=== PATIENT | female | born 1985 | race African-American/Black ===

== ENCOUNTER 2017-12-09 07:06 | Inpatient (IN) ==
[2017-12-09] MEDS ORDERED: ASPIRIN 325 MG TABLET PO STA (07:47)
[2017-12-09] MEDS ORDERED: SODIUM CHLORIDE 0.9% 1,000 ML IV STA (07:47)
[2017-12-09 07:58] LABS: Basophils % 0.1 % (0.0-0.8); Hematocrit 35.6 VOL% (35.7-47.0); Hemoglobin 12.3 GM/DL (12.0-16.0); Immature Granulocytes % 0.4 %; Immature Granulocytes Absolute 0.06 #; Lymphocytes # 1.3 10*3/uL (1.4-4.0); Lymphocytes % 8.6 % (21.3-54.2); Mean Corpuscular HGB Conc 34.6 GM/DL (32-36); Mean Corpuscular Hemoglobin 31 PG (27-34); Mean Corpuscular Volume 89.2 FL (87-102); Mean Platelet Volume 9.6 FL (9.6-12.0); Monocytes # 0.8 10*3/uL (0.11-0.8); Monocytes % 5.7 % (1.7-12.7); Neutrophils # 12.4 10*3/uL (1.4-7.4); Neutrophils % 85.2 % (38.7-73.9); Platelet Count 298 T/CUMM (130-400); Red Blood Count 3.99 MC/CUMM (3.8-5.5); Red Cell Distribution Width 12.5 % (9.3-17.3); White Blood Count 14.6 T/CUMM (4-12)
[2017-12-09] MEDS ORDERED: ASPIRIN 325 MG TABLET ONE (08:04)
[2017-12-09 08:19] LABS: Apearance,Urine Slightly Hazy (Clear); Bacteria,Urine Occasional /HPF (Few); Bilirubin,Urine Negative (Negative); Blood, Urine Small mg/dL (Negative); Glucose,Urine (UA) >=500 mg/dL (Negative); Ketones,Urine 20 mg/dL (Negative); Mucus,Urine Occasional /LPF (Occasional); Nitrite,Urine Positive (Negative); Protein,Urine Negative; RBC,Urine 1 /HPF (0-4); Squamous Epithelial Cell,Urine Occasional /HPF (0-10); Urine Color Straw (Yellow); Urine Specific Gravity 1.025 (1.001-1.035); Urine Urobilinogen < 2.0 EU/DL (0.2-1.0); WBC,Urine 50 /HPF (0-6)
[2017-12-09] MEDS ORDERED: INSULIN REGULAR 100 UNIT/ML SUBCUT STA (08:21)
[2017-12-09 08:27] LABS: Barbiturates Screen,Urine Negative (Negative); Benzodiazepines Screen,Urine Negative (Negative); Cannabinoid Screen,Urine Negative (Negative); Opiate Screen,Urine Negative (Negative); Phencyclidine Screen,Urine Negative (Negative)
[2017-12-09 08:33] LABS: Albumin 3.2 G/DL (3.4-5.0); Bilirubin,Total 0.5 MG/DL (0.2-1.0); Osmolality,Calculated 286.4 MOS/KG (273-304); Potassium 4.1 MMOL/L (3.5-5.1); Total Protein 7.1 G/DL (6.4-8.3)
[2017-12-09] MEDS ORDERED: INSULIN REGULAR 100 UNIT/ML ONE (08:33)
[2017-12-09] MEDS ORDERED: INSULIN REGULAR 100 UNIT/ML IV STA (09:42)
[2017-12-09] MEDS ORDERED: SODIUM CHLORIDE 0.9% 3,000 ML IV ONE (09:43)
[2017-12-09] MEDS ORDERED: GLUCAGON 1 MG VIAL IM PRN (09:44)
[2017-12-09] MEDS ORDERED: DEXTROSE 50% 25 GM/50 ML VIAL IV PRN (09:44)
[2017-12-09] MEDS ORDERED: NICOTINE 21 MG/24 HR PATCH TRANSDERM PRN (09:45)
[2017-12-09] MEDS ORDERED: ACETAMINOPHEN 325 MG TABLET PO PRN (09:45)
[2017-12-09] MEDS ORDERED: MORPHINE 4 MG/1 ML VIAL IV PRN (09:45)
[2017-12-09] MEDS ORDERED: ONDANSETRON 4 MG/2 ML VIAL IV PRN (09:45)
[2017-12-09] MEDS ORDERED: LEVOFLOXACIN INJ 500 MG in PREMIX 1 EACH IV SCH (10:00)
[2017-12-09] MEDS ORDERED: LEVOFLOXACIN INJ 100 ML IV ONE (10:27)
[2017-12-09 10:33] LABS: Risk Ratio 3.48; VLDL CHOLESTEROL 16.2 MG/DL
[2017-12-09 10:42] LABS: Allen Test Positive; Pt O2 Delivery Device Room Air
[2017-12-09 10:44] LABS: ABG Base Excess -3.6 MMOL/L (-2.5-2.5); ABG HCO3 21.4 MMOL/L (20-26); ABG Oxygen Saturation 98.6 % (95-100); ABG PH 7.409 (7.35-7.45)
[2017-12-09 10:52] LABS: Lactic Acid 4.4 MMOL/L (0.4-2.0)
[2017-12-09] MEDS: INSULIN REGULAR 100 UNIT/ML SUBCUT SCH ×3 (12:51→22:31)
[2017-12-09] MEDS: ENOXAPARIN 40 MG/0.4 ML SYRINGE SUBCUT SCH (13:21)
[2017-12-09] MEDS: SODIUM CHLORIDE 0.9% 1,000 ML IV SCH (13:22)
[2017-12-09] MEDS: cefTRIAXone 1,000 MG in SYRINGE 1 EACH IV SCH (14:29)
[2017-12-09 14:54] LABS: Lactic Acid 3.7 MMOL/L (0.4-2.0)
[2017-12-09] MEDS ORDERED: INSULIN NPH/REGULAR 70/30 100 UNIT/ML SUBCUT SCH (19:00)
[2017-12-10] MEDS: SODIUM CHLORIDE 0.9% 1,000 ML IV SCH ×2 (00:16→08:26)
[2017-12-10 05:05] LABS: Basophils % 0.2 % (0.0-0.8); Eosinophils # 0.1 10*3/uL (0.0-0.87); Eosinophils % 0.6 % (0.00-10.9); Hematocrit 31.4 VOL% (35.7-47.0); Hemoglobin 10.6 GM/DL (12.0-16.0); Immature Granulocytes % 0.3 %; Immature Granulocytes Absolute 0.04 #; Lymphocytes # 2.5 10*3/uL (1.4-4.0); Lymphocytes % 20.1 % (21.3-54.2); Mean Corpuscular HGB Conc 33.8 GM/DL (32-36); Mean Corpuscular Hemoglobin 30 PG (27-34); Mean Platelet Volume 9.8 FL (9.6-12.0); Monocytes # 0.8 10*3/uL (0.11-0.8); Monocytes % 6.1 % (1.7-12.7); Neutrophils # 9.2 10*3/uL (1.4-7.4); Neutrophils % 72.7 % (38.7-73.9); Platelet Count 260 T/CUMM (130-400); Red Blood Count 3.49 MC/CUMM (3.8-5.5); Red Cell Distribution Width 12.7 % (9.3-17.3); White Blood Count 12.6 T/CUMM (4-12)
[2017-12-10 05:35] LABS: Atypical Lymphocytes Few; Eosinophils 2 % (0-10); Lymphocytes 15 % (20-55); Segmented Neutrophils 79 % (50-85); Total Cells Counted 100
[2017-12-10 05:36] LABS: Hypochromasia 1+; Microcytosis Slight; Ovalocytes Slight; Platelet Estimate Normal
[2017-12-10 05:44] LABS: Albumin 2.3 G/DL (3.4-5.0); Bilirubin,Total 0.6 MG/DL (0.2-1.0); Osmolality,Calculated 276.3 MOS/KG (273-304); Potassium 3.7 MMOL/L (3.5-5.1); Total Protein 5.5 G/DL (6.4-8.3)
[2017-12-10] MEDS: INSULIN REGULAR 100 UNIT/ML SUBCUT SCH ×4 (07:48→20:35)
[2017-12-10] MEDS ORDERED: DEXTROSE 50% 25 GM/50 ML VIAL IV PRN (07:55)
[2017-12-10] MEDS ORDERED: GLUCAGON 1 MG VIAL IM PRN (07:55)
[2017-12-10] MEDS: PANTOPRAZOLE 40 MG TABLET PO SCH (08:27)
[2017-12-10] MEDS ORDERED: LORazepam 2 MG/1 ML VIAL ONE (08:29)
[2017-12-10] MEDS ORDERED: INSULIN NPH/REGULAR 70/30 100 UNIT/ML SUBCUT SCH (09:00)
[2017-12-10] MEDS: ENOXAPARIN 40 MG/0.4 ML SYRINGE SUBCUT SCH (09:00)
[2017-12-10] MEDS: cefTRIAXone 1,000 MG in SYRINGE 1 EACH IV SCH (15:45)
[2017-12-10] MEDS: INSULIN NPH/REGULAR 70/30 100 UNIT/ML SUBCUT SCH (16:15)
[2017-12-11] MEDS: INSULIN NPH/REGULAR 70/30 100 UNIT/ML SUBCUT SCH ×2 (08:35→17:35)
[2017-12-11] MEDS: INSULIN REGULAR 100 UNIT/ML SUBCUT SCH ×4 (08:35→21:55)
[2017-12-11] MEDS: PANTOPRAZOLE 40 MG TABLET PO SCH (08:36)
[2017-12-11] MEDS: ENOXAPARIN 40 MG/0.4 ML SYRINGE SUBCUT SCH (09:12)
[2017-12-11] MEDS: cefTRIAXone 1,000 MG in SYRINGE 1 EACH IV SCH (14:17)
[2017-12-11] MEDS: cephALEXin 500 MG CAPSULE PO SCH (21:55)
[2017-12-12 05:35] LABS: % Iron Saturation 7.8 % (18-50); Calcium 8.1 MG/DL (8.5-10.1); Osmolality,Calculated 276.3 MOS/KG (273-304); Potassium 4.3 MMOL/L (3.5-5.1)
[2017-12-12] MEDS: cephALEXin 500 MG CAPSULE PO SCH ×2 (06:31→14:48)
[2017-12-12] MEDS: PANTOPRAZOLE 40 MG TABLET PO SCH (08:26)
[2017-12-12] MEDS: ENOXAPARIN 40 MG/0.4 ML SYRINGE SUBCUT SCH ×2 (08:27→09:48)
[2017-12-12] MEDS: INSULIN REGULAR 100 UNIT/ML SUBCUT SCH ×2 (08:30→12:19)
[2017-12-12] MEDS: INSULIN NPH/REGULAR 70/30 100 UNIT/ML SUBCUT SCH (08:30)
[2017-12-12 11:42] VITALS: BP 115/70
[2017-12-12] MEDS: cefTRIAXone 1,000 MG in SYRINGE 1 EACH IV SCH (14:48)
[2017-12-12] MEDS ORDERED: FERROUS SULFATE 325 MG TABLET PO SCH (21:00)
== END 2017-12-12 15:45 | disposition home or self-care (01) | DRG 872 ==
LOC: N.ED 07:06 → SUATTDRO 09:25 → N.EDINP 10:11 → N.5E 12:21
PROVIDERS: ADMIT Internal Medicine; ATTEND Internal Medicine Cardiovascular Disease

== ENCOUNTER 2018-08-29 13:19 | Inpatient (IN) ==
[2018-08-29 14:04] LABS: Apearance,Urine Slightly Hazy (Clear); Bacteria,Urine Occasional /HPF (Few); Bilirubin,Urine Negative (Negative); Blood, Urine Negative (Negative); Glucose,Urine (UA) >=500 mg/dL (Negative); Hyaline Casts,Urine 20 /LPF (0-3); Ketones,Urine 80 mg/dL (Negative); Mucus,Urine Occasional /LPF (Occasional); Nitrite,Urine Negative (Negative); Protein,Urine Negative; RBC,Urine 6 /HPF (0-4); Squamous Epithelial Cell,Urine Few /HPF (0-10); Urine Color Yellow (Yellow); Urine Specific Gravity 1.022 (1.001-1.035); WBC,Urine 23 /HPF (0-6)
[2018-08-29] MEDS ORDERED: ONDANSETRON 4 MG/2 ML VIAL IV STA (14:39)
[2018-08-29] MEDS ORDERED: PANTOPRAZOLE 40 MG VIAL IV STA (14:39)
[2018-08-29] MEDS ORDERED: HYDROmorphone 2 MG/1 ML VIAL IV STA (14:39)
[2018-08-29] MEDS ORDERED: SODIUM CHLORIDE 0.9% 1,000 ML IV STA (14:39)
[2018-08-29] MEDS ORDERED: cefTRIAXone 1,000 MG in SODIUM CHLORIDE 0.9% 100 ML IV STA (14:46)
[2018-08-29 15:24] LABS: Basophils % 0.3 % (0.0-0.8); Hematocrit 35.5 VOL% (35.7-47.0); Hemoglobin 11.6 GM/DL (12.0-16.0); Immature Granulocytes % 0.3 %; Immature Granulocytes Absolute 0.03 #; Lymphocytes # 2.6 10*3/uL (1.4-4.0); Lymphocytes % 22.9 % (21.3-54.2); Mean Corpuscular HGB Conc 32.7 GM/DL (32-36); Mean Corpuscular Hemoglobin 30 PG (27-34); Mean Corpuscular Volume 90.6 FL (87-102); Mean Platelet Volume 9.2 FL (9.6-12.0); Monocytes # 0.7 10*3/uL (0.11-0.8); Monocytes % 5.7 % (1.7-12.7); Neutrophils % 70.8 % (38.7-73.9); Platelet Count 388 T/CUMM (130-400); Red Blood Count 3.92 MC/CUMM (3.8-5.5); Red Cell Distribution Width 13.4 % (9.3-17.3); White Blood Count 11.4 T/CUMM (4-12)
[2018-08-29 15:44] LABS: Lactic Acid 1.8 MMOL/L (0.4-2.0)
[2018-08-29 15:46] LABS: Bilirubin,Total 0.8 MG/DL (0.2-1.0); Calcium 9.5 MG/DL (8.5-10.1); Osmolality,Calculated 288.8 MOS/KG (273-304); Potassium 4.8 MMOL/L (3.5-5.1); Total Protein 8.1 G/DL (6.4-8.3)
[2018-08-29] MEDS ORDERED: INSULIN REGULAR DRIP 100 ML IV PRN (15:56)
[2018-08-29 16:22] LABS: ABG Oxygen Saturation 96.8 % (95-100); ABG PCO2 33.5 MM HG (35-48); ABG PO2 95.8 MM HG (80-95); ABG TCO2 15.7 MMOL/L (23-27); Pt O2 Delivery Device Room Air
[2018-08-29] MEDS ORDERED: INSULIN REGULAR 100 UNIT/ML IV ONE ×3 (16:31→23:27)
[2018-08-29] MEDS ORDERED: SODIUM BICARB INJ 100 MEQ in STERILE WATER INJ 400 ML IV PRN (16:31)
[2018-08-29] MEDS ORDERED: MAGNESIUM SULF RIDER 4 GM in PREMIX 1 EACH IV PRN (16:31)
[2018-08-29] MEDS ORDERED: SODIUM PHOSPHATE IV PRN (16:31)
[2018-08-29] MEDS ORDERED: DEXTROSE 50% 25 GM/50 ML VIAL IV PRN ×2 (16:31)
[2018-08-29] MEDS ORDERED: SODIUM CHLORIDE 0.9% 1,000 ML IV ONE (16:31)
[2018-08-29] MEDS ORDERED: SODIUM CHLORIDE 0.9% IV PRN (16:31)
[2018-08-29] MEDS ORDERED: MAGNESIUM SULF RIDER 2 GM in PREMIX 1 EACH IV PRN (16:31)
[2018-08-29] MEDS ORDERED: PROMETHAZINE 25 MG/1 ML VIAL IM PRN (16:42)
[2018-08-29] MEDS ORDERED: MORPHINE 4 MG/1 ML VIAL IV PRN (16:42)
[2018-08-29] MEDS ORDERED: diphenhydrAMINE CAP 25 MG CAPSULE PO PRN (16:42)
[2018-08-29] MEDS ORDERED: ONDANSETRON 4 MG/2 ML VIAL IV PRN (16:42)
[2018-08-29] MEDS ORDERED: ACETAMINOPHEN 325 MG TABLET PO PRN (16:42)
[2018-08-29] MEDS ORDERED: INSULIN REGULAR DRIP 100 ML IV SCH (17:00)
[2018-08-29] MEDS: cefTRIAXone 2,000 MG in SYRINGE 1 EACH IV SCH (17:58)
[2018-08-29] MEDS: SODIUM CHLORIDE 0.9% 1,000 ML IV SCH ×2 (17:59→20:13)
[2018-08-29 18:18] LABS: ABG Base Excess -11.2 MMOL/L (-2.5-2.5); ABG HCO3 15.5 MMOL/L (20-26); ABG Oxygen Saturation 98.5 % (95-100); ABG PCO2 27.8 MM HG (35-48); ABG PH 7.309 (7.35-7.45); ABG TCO2 12.9 MMOL/L (23-27)
[2018-08-29] MEDS: HEPARIN 5,000 UNIT/1 ML VIAL SUBCUT SCH (18:39)
[2018-08-29 20:21] LABS: ABG Base Excess -7.1 MMOL/L (-2.5-2.5); ABG HCO3 18.6 MMOL/L (20-26); ABG Oxygen Saturation 98.4 % (95-100); ABG PCO2 30.6 MM HG (35-48); ABG PH 7.362 (7.35-7.45); Allen Test Positive; Pt O2 Delivery Device Room Air
[2018-08-29 20:33] LABS: Calcium 8.2 MG/DL (8.5-10.1); Osmolality,Calculated 283.5 MOS/KG (273-304); Potassium 4.1 MMOL/L (3.5-5.1)
[2018-08-29] MEDS: DOCUSATE SODIUM 100 MG CAPSULE PO SCH (21:27)
[2018-08-29] MEDS ORDERED: SODIUM CHLORIDE 0.9% 1,000 ML IV SCH (21:31)
[2018-08-29 22:32] LABS: ABG Base Excess -10.2 MMOL/L (-2.5-2.5); ABG HCO3 16.3 MMOL/L (20-26); ABG Oxygen Saturation 99.4 % (95-100); ABG PCO2 26.6 MM HG (35-48); ABG PH 7.341 (7.35-7.45); ABG TCO2 13.3 MMOL/L (23-27); Allen Test Positive; Pt O2 Delivery Device Room Air
[2018-08-29 23:04] LABS: Apearance,Urine Slightly Hazy (Clear); Bacteria,Urine Occasional /HPF (Few); Bilirubin,Urine Negative (Negative); Blood, Urine Negative (Negative); Glucose,Urine (UA) >=500 mg/dL (Negative); Ketones,Urine 20 mg/dL (Negative); Mucus,Urine Occasional /LPF (Occasional); Nitrite,Urine Negative (Negative); Protein,Urine Negative; RBC,Urine 3 /HPF (0-4); Squamous Epithelial Cell,Urine Occasional /HPF (0-10); Urine Color Yellow (Yellow); Urine Specific Gravity 1.026 (1.001-1.035); Urine Urobilinogen < 2.0 EU/DL (0.2-1.0); WBC,Urine 13 /HPF (0-6)
[2018-08-30] MEDS: DEXTROSE 5% NACL 0.9% 1,000 ML IV SCH ×2 (00:40→04:41)
[2018-08-30] MEDS: HEPARIN 5,000 UNIT/1 ML VIAL SUBCUT SCH ×3 (00:52→17:36)
[2018-08-30 01:33] LABS: Calcium 7.4 MG/DL (8.5-10.1); Osmolality,Calculated 280.1 MOS/KG (273-304); Potassium 3.4 MMOL/L (3.5-5.1)
[2018-08-30] MEDS: POTASSIUM CHLORIDE RIDER 10 MEQ in PREMIX 1 EACH IV PRN ×3 (02:29→04:41)
[2018-08-30 04:33] LABS: Basophils % 0.1 % (0.0-0.8); Eosinophils % 0.4 % (0.00-10.9); Hematocrit 26.2 VOL% (35.7-47.0); Hemoglobin 8.5 GM/DL (12.0-16.0); Immature Granulocytes % 0.3 %; Immature Granulocytes Absolute 0.03 #; Lymphocytes # 4.2 10*3/uL (1.4-4.0); Lymphocytes % 44.3 % (21.3-54.2); Mean Corpuscular HGB Conc 32.4 GM/DL (32-36); Mean Corpuscular Hemoglobin 30 PG (27-34); Mean Platelet Volume 10.3 FL (9.6-12.0); Monocytes # 0.5 10*3/uL (0.11-0.8); Monocytes % 5.6 % (1.7-12.7); Neutrophils # 4.6 10*3/uL (1.4-7.4); Neutrophils % 49.3 % (38.7-73.9); Platelet Count 222 T/CUMM (130-400); Red Blood Count 2.88 MC/CUMM (3.8-5.5); Red Cell Distribution Width 13.2 % (9.3-17.3); White Blood Count 9.4 T/CUMM (4-12)
[2018-08-30 05:00] LABS: Calcium 7.4 MG/DL (8.5-10.1); Osmolality,Calculated 277.4 MOS/KG (273-304); Potassium 3.7 MMOL/L (3.5-5.1)
[2018-08-30] MEDS: SODIUM CHLORIDE 0.45% 1,000 ML IV SCH ×2 (08:30→17:03)
[2018-08-30 08:55] LABS: Calcium 7.4 MG/DL (8.5-10.1); Osmolality,Calculated 279.8 MOS/KG (273-304); Potassium 3.9 MMOL/L (3.5-5.1)
[2018-08-30] MEDS ORDERED: GLUCAGON 1 MG VIAL IM PRN (09:02)
[2018-08-30] MEDS: DOCUSATE SODIUM 100 MG CAPSULE PO SCH ×2 (09:49→20:46)
[2018-08-30] MEDS: INSULIN GLARGINE 100 UNIT/ML SUBCUT SCH (09:50)
[2018-08-30] MEDS: NICOTINE 21 MG/24 HR PATCH TRANSDERM SCH (09:50)
[2018-08-30] MEDS: INSULIN REGULAR 100 UNIT/ML SUBCUT SCH ×4 (12:40→23:35)
[2018-08-30] MEDS: cefTRIAXone 2,000 MG in SYRINGE 1 EACH IV SCH (17:37)
[2018-08-30] MEDS ORDERED: INSULIN GLARGINE 100 UNIT/ML SUBCUT SCH (21:00)
[2018-08-31] MEDS: HEPARIN 5,000 UNIT/1 ML VIAL SUBCUT SCH ×2 (01:12→08:38)
[2018-08-31] MEDS: INSULIN REGULAR 100 UNIT/ML SUBCUT SCH ×3 (03:25→13:26)
[2018-08-31 06:00] LABS: Basophils % 0.2 % (0.0-0.8); Eosinophils # 0.1 10*3/uL (0.0-0.87); Eosinophils % 1.1 % (0.00-10.9); Hematocrit 26.2 VOL% (35.7-47.0); Hemoglobin 8.7 GM/DL (12.0-16.0); Lymphocytes # 2.9 10*3/uL (1.4-4.0); Lymphocytes % 66.4 % (21.3-54.2); Mean Corpuscular HGB Conc 33.2 GM/DL (32-36); Mean Corpuscular Hemoglobin 30 PG (27-34); Mean Corpuscular Volume 90.7 FL (87-102); Mean Platelet Volume 9.1 FL (9.6-12.0); Monocytes # 0.3 10*3/uL (0.11-0.8); Monocytes % 6.8 % (1.7-12.7); Neutrophils # 1.1 10*3/uL (1.4-7.4); Neutrophils % 25.5 % (38.7-73.9); Platelet Count 278 T/CUMM (130-400); Red Blood Count 2.89 MC/CUMM (3.8-5.5); Red Cell Distribution Width 13.4 % (9.3-17.3); White Blood Count 4.4 T/CUMM (4-12)
[2018-08-31 06:01] LABS: Basophils % 0.4 % (0.0-0.8); Eosinophils % 0.9 % (0.00-10.9); Hematocrit 26.2 VOL% (35.7-47.0); Hemoglobin 8.6 GM/DL (12.0-16.0); Immature Granulocytes % 0.2 %; Immature Granulocytes Absolute 0.01 #; Lymphocytes % 65.7 % (21.3-54.2); Mean Corpuscular HGB Conc 32.8 GM/DL (32-36); Mean Corpuscular Hemoglobin 30 PG (27-34); Mean Platelet Volume 9.1 FL (9.6-12.0); Monocytes # 0.3 10*3/uL (0.11-0.8); Monocytes % 6.7 % (1.7-12.7); Neutrophils # 1.2 10*3/uL (1.4-7.4); Neutrophils % 26.1 % (38.7-73.9); Platelet Count 278 T/CUMM (130-400); Red Blood Count 2.91 MC/CUMM (3.8-5.5); Red Cell Distribution Width 13.5 % (9.3-17.3); White Blood Count 4.5 T/CUMM (4-12)
[2018-08-31] MEDS: SODIUM CHLORIDE 0.45% 1,000 ML IV SCH (06:26)
[2018-08-31 06:27] LABS: Eosinophils 2 % (0-10); Lymphocytes 70 % (20-55); Segmented Neutrophils 27 % (50-85); Total Cells Counted 100
[2018-08-31 06:28] LABS: Hypochromasia Slight; Microcytosis 1+; Platelet Estimate Adequate; Polychromasia Few
[2018-08-31 06:30] LABS: Calcium 7.8 MG/DL (8.5-10.1); Osmolality,Calculated 279.1 MOS/KG (273-304); Potassium 3.7 MMOL/L (3.5-5.1)
[2018-08-31 06:34] LABS: Eosinophils 1 % (0-10); Lymphocytes 72 % (20-55); Platelet Estimate Normal; Schistocytes Few; Segmented Neutrophils 25 % (50-85); Total Cells Counted 100
[2018-08-31] MEDS: POTASSIUM CHLORIDE RIDER 10 MEQ in PREMIX 1 EACH IV PRN (06:47)
[2018-08-31 06:50] LABS: Folate 2.3 NG/ML (5.4-24.0); Vitamin B12 332 PG/ML (211-911)
[2018-08-31 08:20] LABS: Sedimentation Rate-Westergren 68 MM/HR (0-20)
[2018-08-31] MEDS: DOCUSATE SODIUM 100 MG CAPSULE PO SCH (08:37)
[2018-08-31] MEDS: INSULIN GLARGINE 100 UNIT/ML SUBCUT SCH (08:38)
[2018-08-31] MEDS: NICOTINE 21 MG/24 HR PATCH TRANSDERM SCH (08:38)
[2018-08-31] MEDS ORDERED: POTASSIUM CHLORIDE 20 MEQ TABLET PO PRN (08:43)
[2018-08-31 13:25] VITALS: BP 134/84
[2018-08-31 14:10] LABS: Hemoglobin A1 (Alkaline) 97.3 % (96.5-98.5); Hemoglobin A2 (Alkaline) 2.7 % (1.5-3.5)
== END 2018-08-31 12:42 | disposition home or self-care (01) | DRG 638 ==
LOC: N.ED 13:19 → N.EDINP 16:31 → SUATTDRO 16:31 → N.CC 16:53
PROVIDERS: ADMIT Phlebology; ATTEND Internal Medicine Geriatric Medicine

== ENCOUNTER 2018-10-23 02:28 | Inpatient (IN) ==
[2018-10-23] MEDS ORDERED: SODIUM CHLORIDE 0.9% 2,000 ML IV STA (03:27)
[2018-10-23] MEDS ORDERED: INSULIN REGULAR 100 UNIT/ML IV STA (03:28)
[2018-10-23 03:37] LABS: Basophils % 0.1 % (0.0-0.8); Eosinophils % 0.2 % (0.00-10.9); Hematocrit 35.1 VOL% (35.7-47.0); Hemoglobin 11.2 GM/DL (12.0-16.0); Immature Granulocytes % 0.5 %; Immature Granulocytes Absolute 0.04 #; Lymphocytes # 1.6 10*3/uL (1.4-4.0); Lymphocytes % 17.5 % (21.3-54.2); Mean Corpuscular HGB Conc 31.9 GM/DL (32-36); Mean Corpuscular Hemoglobin 29 PG (27-34); Mean Corpuscular Volume 89.5 FL (87-102); Monocytes # 0.4 10*3/uL (0.11-0.8); Monocytes % 4.9 % (1.7-12.7); Neutrophils # 6.8 10*3/uL (1.4-7.4); Neutrophils % 76.8 % (38.7-73.9); Platelet Count 375 T/CUMM (130-400); Red Blood Count 3.92 MC/CUMM (3.8-5.5); Red Cell Distribution Width 13.7 % (9.3-17.3); White Blood Count 8.9 T/CUMM (4-12)
[2018-10-23 03:49] LABS: Alanine Aminotransferase < 9 U/L (13-56); Albumin 3.6 G/DL (3.4-5.0); Alkaline Phosphatase 104 U/L (45-117); Aspartate Amino Transferase 6 U/L (0-37); Blood Urea Nitrogen 15 MG/DL (7-18); Calcium 8.9 MG/DL (8.5-10.1); Osmolality,Calculated 295.8 MOS/KG (273-304); Potassium 4.7 MMOL/L (3.5-5.1); Sodium 130 MMOL/L (136-145); Total Protein 7.2 G/DL (6.4-8.3)
[2018-10-23 03:52] LABS: Glucose 728 MG/DL (74-106)
[2018-10-23] MEDS ORDERED: INSULIN REGULAR DRIP 100 ML IV PRN (04:03)
[2018-10-23 04:22] LABS: VBG Base Excess -12.2 MEQ/L (0-4); VBG Oxygen Saturation 97.8 %; VBG PCO2 29.4 MMHG (41-51); VBG PH 7.272
[2018-10-23] MEDS ORDERED: PROMETHAZINE 25 MG/1 ML VIAL IM STA (04:56)
[2018-10-23] MEDS ORDERED: PROMETHAZINE 25 MG/1 ML VIAL ONE (04:57)
[2018-10-23] MEDS ORDERED: INSULIN REGULAR DRIP 100 ML IV STA (05:22)
[2018-10-23] MEDS ORDERED: INSULIN REGULAR DRIP 100 ML IV SCH ×2 (05:30→06:30)
[2018-10-23 05:40] LABS: Apearance,Urine CLEAR (Clear); Bacteria,Urine Occasional /HPF (Few); Bilirubin,Urine Negative (Negative); Blood, Urine Moderate mg/dL (Negative); Glucose,Urine (UA) >=500 mg/dL (Negative); Ketones,Urine 80 mg/dL (Negative); Nitrite,Urine Negative (Negative); Protein,Urine Negative; RBC,Urine 2 /HPF (0-4); Squamous Epithelial Cell,Urine Occasional /HPF (0-10); Urine Color Straw (Yellow); Urine Specific Gravity 1.027 (1.001-1.035); Urine Urobilinogen < 2.0 EU/DL (0.2-1.0); WBC,Urine 1 /HPF (0-6)
[2018-10-23 05:56] LABS: Barbiturates Screen,Urine Negative (Negative); Benzodiazepines Screen,Urine Negative (Negative); Cannabinoid Screen,Urine Negative (Negative); Opiate Screen,Urine Negative (Negative); Phencyclidine Screen,Urine Negative (Negative)
[2018-10-23] MEDS ORDERED: POTASSIUM CHLORIDE RIDER 10 MEQ in PREMIX 1 EACH IV PRN (06:15)
[2018-10-23] MEDS ORDERED: SODIUM PHOSPHATE IV PRN (06:15)
[2018-10-23] MEDS ORDERED: SODIUM BICARB INJ 100 MEQ in STERILE WATER INJ 400 ML IV PRN (06:15)
[2018-10-23] MEDS ORDERED: MAGNESIUM SULF RIDER 2 GM in PREMIX 1 EACH IV PRN (06:15)
[2018-10-23] MEDS ORDERED: MAGNESIUM SULF RIDER 4 GM in PREMIX 1 EACH IV PRN (06:15)
[2018-10-23] MEDS ORDERED: DEXTROSE 50% 25 GM/50 ML VIAL IV PRN (06:15)
[2018-10-23] MEDS ORDERED: SODIUM CHLORIDE 0.9% 1,000 ML IV ONE (06:15)
[2018-10-23] MEDS ORDERED: SODIUM CHLORIDE 0.9% IV PRN (06:15)
[2018-10-23] MEDS ORDERED: DEXTROSE 50% 25 GM/50 ML SYRINGE IV PRN ×3 (06:15→16:10)
[2018-10-23 06:20] LABS: Basophils % 0.2 % (0.0-0.8); Hemoglobin 10.8 GM/DL (12.0-16.0); Immature Granulocytes % 0.5 %; Immature Granulocytes Absolute 0.06 #; Lymphocytes # 0.6 10*3/uL (1.4-4.0); Lymphocytes % 4.9 % (21.3-54.2); Mean Corpuscular HGB Conc 31.8 GM/DL (32-36); Mean Corpuscular Hemoglobin 29 PG (27-34); Mean Corpuscular Volume 90.9 FL (87-102); Mean Platelet Volume 9.6 FL (9.6-12.0); Monocytes # 0.6 10*3/uL (0.11-0.8); Monocytes % 4.4 % (1.7-12.7); Neutrophils # 11.5 10*3/uL (1.4-7.4); Platelet Count 349 T/CUMM (130-400); Red Blood Count 3.74 MC/CUMM (3.8-5.5); Red Cell Distribution Width 13.7 % (9.3-17.3); White Blood Count 12.8 T/CUMM (4-12)
[2018-10-23] MEDS ORDERED: ONDANSETRON 4 MG/2 ML VIAL IV PRN (06:20)
[2018-10-23] MEDS ORDERED: DOCUSATE SODIUM 100 MG CAPSULE PO PRN (06:20)
[2018-10-23] MEDS ORDERED: ZALEPLON 5 MG CAPSULE PO PRN (06:20)
[2018-10-23] MEDS ORDERED: ALBUTEROL 2.5 MG/3 ML NEB RESP TX PRN (06:20)
[2018-10-23 06:46] LABS: Calcium 8.4 MG/DL (8.5-10.1); Potassium 5.6 MMOL/L (3.5-5.1)
[2018-10-23] MEDS: SODIUM CHLORIDE 0.9% 1,000 ML IV SCH ×2 (07:30→10:16)
[2018-10-23 08:32] LABS: Calcium 7.7 MG/DL (8.5-10.1); Osmolality,Calculated 307.3 MOS/KG (273-304); Potassium 4.2 MMOL/L (3.5-5.1)
[2018-10-23 08:40] LABS: Hypochromasia 1+; Lymphocytes 6 % (20-55); Microcytosis 1+; Nucleated Red Blood Cells 2 (0-5); Ovalocytes Few; Platelet Estimate Normal; Polychromasia Few; Segmented Neutrophils 94 % (50-85); Total Cells Counted 100
[2018-10-23 08:41] LABS: Schistocytes Slight
[2018-10-23] MEDS: NICOTINE 21 MG/24 HR PATCH TRANSDERM SCH (10:11)
[2018-10-23] MEDS: ENOXAPARIN 40 MG/0.4 ML SYRINGE SUBCUT SCH (10:11)
[2018-10-23] MEDS: PANTOPRAZOLE 40 MG TABLET PO SCH (10:11)
[2018-10-23] MEDS: ACETAMINOPHEN 325 MG TABLET PO PRN ×2 (10:17→20:17)
[2018-10-23] MEDS ORDERED: SODIUM CHLORIDE 0.9% 1,000 ML IV SCH ×2 (10:30→11:16)
[2018-10-23 10:58] LABS: Calcium 8.2 MG/DL (8.5-10.1); Osmolality,Calculated 296.7 MOS/KG (273-304); Potassium 4.1 MMOL/L (3.5-5.1)
[2018-10-23] MEDS ORDERED: DEXTROSE 5% NACL 0.45% 1,000 ML IV SCH (12:00)
[2018-10-23 15:28] LABS: Calcium 7.7 MG/DL (8.5-10.1); Osmolality,Calculated 290.6 MOS/KG (273-304)
[2018-10-23] MEDS ORDERED: GLUCAGON 1 MG VIAL IM PRN (16:10)
[2018-10-23] MEDS: SODIUM CHLORIDE 0.45% 1,000 ML IV SCH ×2 (16:32→23:52)
[2018-10-23] MEDS: INSULIN REGULAR 100 UNIT/ML SUBCUT SCH ×3 (17:23→23:55)
[2018-10-23] MEDS: INSULIN LISPRO 100 UNIT/ML SUBCUT SCH (17:23)
[2018-10-23 19:57] LABS: Osmolality,Calculated 287.7 MOS/KG (273-304); Potassium 3.5 MMOL/L (3.5-5.1)
[2018-10-23 22:25] LABS: Calcium 7.9 MG/DL (8.5-10.1)
[2018-10-23] MEDS ORDERED: SODIUM CHLORIDE 0.45% 1,000 ML IV SCH (23:16)
[2018-10-23] MEDS: INSULIN GLARGINE 100 UNIT/ML SUBCUT SCH ×2 (23:19→23:56)
[2018-10-24] MEDS: ACETAMINOPHEN 325 MG TABLET PO PRN (02:30)
[2018-10-24 02:59] LABS: Basophils % 0.3 % (0.0-0.8); Eosinophils % 0.2 % (0.00-10.9); Hematocrit 27.7 VOL% (35.7-47.0); Hemoglobin 8.9 GM/DL (12.0-16.0); Immature Granulocytes % 0.4 %; Immature Granulocytes Absolute 0.04 #; Lymphocytes # 3.2 10*3/uL (1.4-4.0); Lymphocytes % 28.3 % (21.3-54.2); Mean Corpuscular HGB Conc 32.1 GM/DL (32-36); Mean Corpuscular Hemoglobin 29 PG (27-34); Mean Corpuscular Volume 89.9 FL (87-102); Mean Platelet Volume 9.5 FL (9.6-12.0); Monocytes # 0.6 10*3/uL (0.11-0.8); Monocytes % 5.1 % (1.7-12.7); Neutrophils # 7.4 10*3/uL (1.4-7.4); Neutrophils % 65.7 % (38.7-73.9); Platelet Count 310 T/CUMM (130-400); Red Blood Count 3.08 MC/CUMM (3.8-5.5); Red Cell Distribution Width 14.3 % (9.3-17.3); White Blood Count 11.3 T/CUMM (4-12)
[2018-10-24 03:07] LABS: Calcium 7.8 MG/DL (8.5-10.1); Osmolality,Calculated 287.1 MOS/KG (273-304); Potassium 3.8 MMOL/L (3.5-5.1)
[2018-10-24] MEDS ORDERED: MAGNESIUM SULF RIDER 4 GM in PREMIX 1 EACH IV ONE (07:18)
[2018-10-24] MEDS: INSULIN REGULAR 100 UNIT/ML SUBCUT SCH ×4 (07:55→21:03)
[2018-10-24] MEDS: PANTOPRAZOLE 40 MG TABLET PO SCH (08:34)
[2018-10-24] MEDS: ENOXAPARIN 40 MG/0.4 ML SYRINGE SUBCUT SCH (08:34)
[2018-10-24] MEDS: INSULIN LISPRO 100 UNIT/ML SUBCUT SCH ×3 (08:35→17:36)
[2018-10-24] MEDS: NICOTINE 21 MG/24 HR PATCH TRANSDERM SCH (08:35)
[2018-10-24] MEDS ORDERED: PNEUMOCOCCAL VACCINE (23 VALENT) 0.5 ML VIAL IM ONE (09:30)
[2018-10-24] MEDS ORDERED: INFLUENZA VIRUS VACCINE 0.5 ML SYRINGE IM ONE (09:30)
[2018-10-24] MEDS: SODIUM CHLORIDE 0.45% 1,000 ML IV SCH ×2 (10:52→17:35)
[2018-10-24] MEDS: INSULIN GLARGINE 100 UNIT/ML SUBCUT SCH (21:02)
[2018-10-25] MEDS: SODIUM CHLORIDE 0.45% 1,000 ML IV SCH ×2 (02:01→11:40)
[2018-10-25 06:03] LABS: Calcium 7.9 MG/DL (8.5-10.1); Osmolality,Calculated 278.1 MOS/KG (273-304); Potassium 3.6 MMOL/L (3.5-5.1)
[2018-10-25 06:04] LABS: Basophils % 0.4 % (0.0-0.8); Eosinophils # 0.1 10*3/uL (0.0-0.87); Hematocrit 28.1 VOL% (35.7-47.0); Immature Granulocytes % 0.2 %; Immature Granulocytes Absolute 0.01 #; Lymphocytes # 2.5 10*3/uL (1.4-4.0); Lymphocytes % 47.1 % (21.3-54.2); Mean Corpuscular Hemoglobin 28 PG (27-34); Mean Corpuscular Volume 88.1 FL (87-102); Mean Platelet Volume 9.4 FL (9.6-12.0); Monocytes # 0.5 10*3/uL (0.11-0.8); Monocytes % 8.8 % (1.7-12.7); Neutrophils # 2.2 10*3/uL (1.4-7.4); Neutrophils % 42.5 % (38.7-73.9); Platelet Count 285 T/CUMM (130-400); Red Blood Count 3.19 MC/CUMM (3.8-5.5); White Blood Count 5.2 T/CUMM (4-12)
[2018-10-25] MEDS: INSULIN REGULAR 100 UNIT/ML SUBCUT SCH ×2 (08:50→11:51)
[2018-10-25] MEDS: INSULIN LISPRO 100 UNIT/ML SUBCUT SCH ×2 (08:50→11:52)
[2018-10-25] MEDS: PANTOPRAZOLE 40 MG TABLET PO SCH (09:26)
[2018-10-25] MEDS: ENOXAPARIN 40 MG/0.4 ML SYRINGE SUBCUT SCH (09:26)
[2018-10-25] MEDS: NICOTINE 21 MG/24 HR PATCH TRANSDERM SCH (09:26)
[2018-10-25 13:08] VITALS: BP 121/84
[2018-10-25] MEDS: ACETAMINOPHEN 325 MG TABLET PO PRN (15:04)
== END 2018-10-25 15:14 | disposition home or self-care (01) | DRG 638 ==
LOC: SUATTDRO → EDUNIT# → N.ED 02:28 → SUATTDRO 06:14 → N.EDINP 06:14 → N.ICU 08:32 → N.2E 10-25 13:05
PROVIDERS: ADMIT Hospitalist; ATTEND Internal Medicine